=== PATIENT | male | born 1955 | race African-American/Black ===

== ENCOUNTER 2019-12-20 13:15 | Emergency (ER) | payer MEDICARE, MEDICAID ==
[~2019-12-20] VITALS: Ht 172.7 cm; Wt 60.1 kg
[~2019-12-20 13:15] MED LIST: ALLO100T30 PO; AMLO-150 PO; AMLO10TA8 PO; ATOR-2 PO; DEXT1DRO6 EACHEYE; DIAZ5TAB4 PO; DIVA500T17 PO; ERGO500017 PO; FLUO20CA23 PO; FOLI-17 PO; HYDR25TA6 PO; HYDR4TAB48 PO; LACT20SO13 PO; LEVO75TA5 PO; LOSA100T14 PO; LOSA1TAB22 PO; MAGN400T26 PO; METH500T7 PO; METO100T7 PO; MULT-484 PO; OMEP-110 PO; OXYC5TAB3 PO; POTA10TA31 PO; PSYL0.5215 PO; TAMS0.4C2 PO; THIA100T67 PO; UNKNOWN BP MED; VENL150C6 PO
--- NOTE | 2019-12-20 13:25 | NUR ---
APPLIED NECK COLLAR IN TRIAGE
[2019-12-20] MEDS ORDERED: HYDROcodone/APAP 5/325 TABLET ONE (14:10)
[2019-12-20] MEDS ORDERED: ONDANSETRON ODT 8 MG ONE (14:10)
[2019-12-20] MEDS ORDERED: KETOROLAC 30 MG/1 ML ONE (14:10)
--- NOTE | 2019-12-20 14:16 | NUR ---
PT MEDICATED PER DEC FOR PAIN. PT STS ABLE TO OBTAIN RIDE HOME
[2019-12-20] MEDS ORDERED: KETOROLAC 30 MG/1 ML IM ONE (14:30)
[2019-12-20] MEDS ORDERED: HYDROcodone/APAP 5/325 TABLET PO ONE (14:30)
[2019-12-20] MEDS ORDERED: ONDANSETRON ODT 8 MG PO ONE (14:30)
--- NOTE | 2019-12-20 15:29 | NUR ---
BACK FROM CT
[2019-12-20 16:29] VITALS: BP 193/96
--- NOTE | 2019-12-20 16:32 | NUR ---
ALL RESULTS BACK AT THIS TIME. VS RECHECKED, PT STILL HTN BUT STATES PAIN IS MUCH BETTER
== END 2019-12-20 16:44 | disposition home or self-care (01) ==
LOC: ED 16:39
DX: S16.1XXA Strain of muscle, fascia and tendon at neck level, initial encounter (principal); R51 Headache; I10 Essential (primary) hypertension; V49.9XXA Car occupant (driver) (passenger) injured in unspecified traffic accident, initial encounter; Y93.89 Activity, other specified; Y92.89 Other specified places as the place of occurrence of the external cause; Y99.8 Other external cause status
CPT/HCPCS: 72125; 96372; 99284; J1885; Q0162